=== PATIENT | male | born 1955 | race Caucasian/White ===

== ENCOUNTER 2017-02-23 05:10 | Inpatient (IN) | payer BC ==
[~2017-02-23] VITALS: Ht 177.8 cm; Wt 108.9 kg
--- NOTE | 2017-02-23 05:23 | NUR ---
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 AOX4, afebrile w/ resp even & unlabored, no N/V/D at this time w/ mild discomfort noted. pt in gown, on continuous monitoring. Urine obtained & sent to lab. Dr. Harrell at bedside for further eval.
[2017-02-23] MEDS ORDERED: IV NS 0.9% 1,000 ML BAG IV ONE (05:30)
[2017-02-23] MEDS ORDERED: MORPHINE SULFATE INJ 2 MG/ML DISP.SYRIN IV ONE (05:30)
[2017-02-23] MEDS ORDERED: ONDANSETRON HCL/PF 4 MG/2 ML VIAL IVP ONE (05:30)
[2017-02-23] MEDS ORDERED: ONDANSETRON HCL/PF 4 MG/2 ML VIAL ONE (05:35)
[2017-02-23] MEDS ORDERED: MORPHINE SULFATE INJ 4 MG/ML DISP.SYRIN ONE (05:35)
[2017-02-23] MEDS ORDERED: IV NS 0.9% 1,000 ML ONE (05:36)
[2017-02-23] MEDS ORDERED: IV SET PRIMARY 1 EA INFUS.SET MC ONE ×2 (05:36→08:39)
--- NOTE | 2017-02-23 05:40 | NUR ---
IVHL started, labs drawn & sent. pt medicated as ordered.
[2017-02-23 05:45] LABS: BASOPHILS % (AUTO) 0.3 % (0.0-2.0); EOSINOPHILS # (AUTO) 0.4 /CMM (0.0-0.7); EOSINOPHILS % (AUTO) 3.2 % (0.0-6.0); HEMATOCRIT 49 % (39-51); HEMOGLOBIN 16.6 g/dL (13.5-17.5); LYMPHOCYTES # (AUTO) 1.4 /CMM (0.8-4.8); LYMPHOCYTES % (AUTO) 11.9 % (20.0-44.0); MEAN CORPUSCULAR HEMOGLOBIN 30 PG (26.0-33.0); MEAN CORPUSCULAR HGB CONC 34 g/dl (31.0-36.0); MEAN CORPUSCULAR VOLUME 88 fL (80-96); MONOCYTES # (AUTO) 0.6 /CMM (0.1-1.30); MONOCYTES % (AUTO) 5.2 % (2.0-12.0); NEUTROPHILS # (AUTO) 9.4 /CMM (1.8-8.9); NEUTROPHILS % (AUTO) 79.4 % (43.0-81.0); PLATELET COUNT (AUTO) 196 /CMM (150-450); RED BLOOD CELL COUNT(AUTO) 5.49 MIL/uL (4.5-6.0); WHITE BLOOD COUNT (AUTO) 11.9 K/uL (4.3-11.0)
[2017-02-23 05:49] LABS: APPEARANCE,URINE CLEAR (CLEAR); BILIRUBIN,URINE NEGATIVE (NEGATIVE); BLOOD, URINE 2+ Ery/uL (NEGATIVE); COLOR,URINE YELLOW (YELLOW); KETONES,URINE NEGATIVE (NEGATIVE); LEUKOCYTE ESTERASE ,URINE NEGATIVE (NEGATIVE); NITRITE, URINE NEGATIVE (NEGATIVE); PROTEIN,URINE NEGATIVE (NEGATIVE); UGLUCOSE NEGATIVE (NEGATIVE); UROBILINOGEN,URINE 0.2 EU/dL (0.2)
--- NOTE | 2017-02-23 05:52 | NUR ---
PT TO CT ON [place]. VSS, NAD NOTED.
[2017-02-23 05:56] LABS: WBC,URINE 0-2 /HPF (0-3)
[2017-02-23 05:56] LABS: CALCIUM, SERUM 9.2 mg/dL (8.5-10.1); CARBON DIOXIDE 28 mmol/L (21-32); CHLORIDE 106 mmol/L (98-107); CREATININE 1.1 mg/dL (0.6-1.3); GLUCOSE 133 mg/dL (74-106); POTASSIUM 4.1 mmol/L (3.5-5.1); SODIUM SERUM 140 mmol/L (136-145); UREA NITROGEN, BLOOD 24 mg/dL (7-18)
[2017-02-23 05:57] LABS: BACTERIA,URINE None seen /HPF (None Seen); SQUAMOUS EPITHELIAL CELL,UR 0-2 /HPF (None Seen)
[2017-02-23 05:58] LABS: INR 1.04 (0.87-1.13); PROTHROMBIN TIME 11.2 SECS (9.5-12.7)
[2017-02-23 06:02] LABS: ALANINE AMINOTRANSFERASE 37 U/L (12-78); ALBUMIN 3.8 g/dL (3.4-5.0); ALKALINE PHOSPHATASE 93 U/L (46-116); ASPARTATE AMINOTRANSFERASE 20 U/L (15-37); BILIRUBIN,DIRECT 0.1 mg/dL (0.0-0.2); BILIRUBIN,TOTAL 0.6 mg/dL (0.2-1.0); LIPASE 107 U/L (73-393); TOTAL PROTEIN, SERUM 7.4 g/dL (6.4-8.2)
[2017-02-23 06:04] LABS: TROPONIN I < 0.017 ng/mL (0.00-0.056)
--- NOTE | 2017-02-23 06:05 | NUR ---
pt back fr CT w/ resp even & unlabored, nad noted.
--- NOTE | 2017-02-23 06:13 | NUR ---
pt report continues to have diffuse abd pain, more pain radiating to midupper back, unrelieved w/ pain medication, but refusing anymore pain medications at this time. On continuous monitoring.
--- NOTE | 2017-02-23 06:24 | NUR ---
Dr. Goldberg at bedside for further eval.
--- NOTE | 2017-02-23 06:39 | NUR ---
Dr. Goldberg at bedside for update on pt status.
[2017-02-23] MEDS ORDERED: IV SET PRIMARY PUMP SET 1 EA INFUS.SET MC ONE ×2 (06:54→14:26)
[2017-02-23] MEDS ORDERED: PIPERACILLIN /TAZOBACTAM 3.375 G VIAL IV ONE (06:54)
--- NOTE | 2017-02-23 06:58 | NUR ---
pt ambulatory w/ steady gait to restroom.
[2017-02-23] MEDS ORDERED: PIPERACILLIN /TAZOBACTAM 3.375 G in IV D5W 50 ML IV ONE (07:00)
--- NOTE | 2017-02-23 07:01 | NUR ---
CALLED AND LEFT MESSAGE FOR ON-CALL SURGEON
--- NOTE | 2017-02-23 07:05 | NUR ---
pt medicated as ordered w/ IV antibiotics, on continuous monitoring, awaiting US.
--- NOTE | 2017-02-23 07:10 | NUR ---
Report given to GIOVANNA Sotelo for ANNALISE.
--- NOTE | 2017-02-23 07:31 | NUR ---
REPORT GIVEN TO JULIO HEREDIA FOR CONTINUITY OF CARE
[2017-02-23] MEDS ORDERED: ASPI81TA2 PO (08:05)
[2017-02-23] MEDS ORDERED: FLUT16SP16 NS (08:05)
[2017-02-23] MEDS ORDERED: AMLO5TAB2 PO (08:05)
[2017-02-23] MEDS ORDERED: CITA20TA11 PO (08:05)
[2017-02-23] MEDS ORDERED: SIMV40TA5 PO (08:05)
[2017-02-23] MEDS ORDERED: POTA10TA15 PO (08:05)
[2017-02-23] MEDS ORDERED: [UNRECOGNIZED DRUG - CODE] PO (08:05)
--- NOTE | 2017-02-23 08:05 | NUR ---
PER DR HADLEY SURGERY WILL BE AT 1100. CONSENTS PREPARED, PER PT DOES NOT WANT TO SIGN UNTIL HE SPEAKS WITH SURGEON, PER WILL SPEAK WITH PT PRIOR TO SX
[2017-02-23] MEDS ORDERED: BRIM5DRO11 LEFTEYE (08:16)
[2017-02-23] MEDS ORDERED: LATA2.5D7 LEFTEYE (08:16)
[2017-02-23] MEDS ORDERED: DORZ10DR11 EACHEYE (08:16)
[2017-02-23] MEDS ORDERED: LOTE5DRO3 LEFTEYE (08:16)
[2017-02-23] MEDS ORDERED: IV NS 0.9% 500 ML IV ONE (08:39)
[2017-02-23] MEDS ORDERED: IV NS 0.9% 500 ML BAG IV ONE (09:00)
[2017-02-23] MEDS ORDERED: LIDOCAINE HCL/PF 1% 30 ML SDV ONE (09:10)
[2017-02-23] MEDS ORDERED: BUPIVACAINE MPF W/EPI 0.25% 30 ML VIAL ONE (09:10)
--- NOTE | 2017-02-23 09:30 | NUR ---
MS RN NOTES PATIENT RECEIVED FROM ER. NO SOB OR DISTRESS NOTED AT THIS TIME. PATIENT DENIES PAIN. PATIENT ORIENTED TO ROOM AND CALL LIGHT. BELONGINGS LIST CHECKED AND ACCOUNTED FOR.
[2017-02-23 09:53] VITALS: BP 139/91
[2017-02-23] MEDS ORDERED: FENTANYL PF 100MCG/2ML AMPUL ONE (11:11)
[2017-02-23] MEDS ORDERED: MIDAZOLAM HCL 2 MG/2ML VIAL ONE (11:11)
[2017-02-23] MEDS ORDERED: ROCURONIUM BROMIDE 50 MG/5 ML ONE ×2 (11:12)
[2017-02-23] MEDS ORDERED: ONDANSETRON HCL/PF 4 MG/2 ML VIAL IVP PRN (11:30)
[2017-02-23] MEDS ORDERED: Z GUARD REMEDY 2 OZ OINT TP PRN (11:30)
[2017-02-23] MEDS ORDERED: ZOLPIDEM TARTRATE 5 MG TABLET PO PRN ×2 (11:30→15:00)
[2017-02-23] MEDS ORDERED: MORPHINE SULFATE INJ 2 MG/ML DISP.SYRIN IV PRN ×2 (11:30→15:00)
[2017-02-23] MEDS ORDERED: ALPRAZOLAM 1 MG TABLET PO PRN (11:30)
[2017-02-23] MEDS ORDERED: ACETAMINOPHEN 325 MG TABLET PO PRN (11:30)
--- NOTE | 2017-02-23 14:24 | NUR ---
RN NOTES PATIENT RECEIVED FROM OR IN STABLE CONDITION. NO SOB OR DISTRESS, PATIENT DENIES PAIN. VITALS CHECKED AND RECORDED. WILL MONITOR.
[2017-02-23] MEDS ORDERED: SECONDARY IV SET 1 EA INFUS.SET MC ONE ×2 (14:26→20:23)
[2017-02-23] MEDS: PIPERACILLIN /TAZOBACTAM 3.375 G in IV D5W 50 ML IV SCH ×2 (14:34→17:23)
[2017-02-23] MEDS: IV NS 0.9% 1,000 ML IV PRN (14:35)
[2017-02-23] MEDS ORDERED: HYDROCODONE/APAP 5/325MG 1 EACH TABLET PO PRN (15:00)
[2017-02-23] MEDS ORDERED: SENNOSIDES 8.6 MG TABLET PO PRN (15:00)
[2017-02-23 16:00] VITALS: BP 101/63
[2017-02-23] MEDS: TIMOLOL MAL/DORZOLAM HCL OPHTH 10 ML BOTTLE EACHEYE SCH (17:23)
[2017-02-23] MEDS: BRIMONIDINE TARTRATE OPHT SOLN 5 ML BOTTLE LEFTEYE SCH (17:23)
--- NOTE | 2017-02-23 19:09 | NUR ---
MS RN CLOSING NOTES NO SIGNIFICANT CHANGES IN PATIENT CONDITION THROUGHOUT THE SHIFT. NO SOB OR DISTRESS NOTED, PATIENT DENIES PAIN AT THIS TIME. BED IN A LOW POSITION, CALL LIGHT WITHIN PATIENT REACH. WILL ENDORSE FOR ANNALISE.
--- NOTE | 2017-02-23 19:40 | NUR ---
MSRN FULLY AWAKE, RESTING QUIETLY. NO NEEDS FOR NOW, DENIES ANY TYPE OF PAIN. WILL CALL IF NEEDED. PRESENT IVF INFUSING WELL.
[2017-02-23 20:00] VITALS: BP 110/62
[2017-02-23] MEDS: ANCEF 1 GM/50 ML D5W IV SCH ×2 (20:32)
[2017-02-23] MEDS ORDERED: ASPIRIN 81 MG TAB.CHEW PO SCH (22:00)
--- NOTE | 2017-02-24 00:15 | NUR ---
MSRN OFFERED PAIN MEDICAINE, STATED PAIN SCALE WAS 2 TO 3 OUT OF 10. WILL CALL IF NEEDED.
[2017-02-24] MEDS: PIPERACILLIN /TAZOBACTAM 3.375 G in IV D5W 50 ML IV SCH ×3 (00:36→12:31)
[2017-02-24] MEDS: ANCEF 1 GM/50 ML D5W IV SCH ×2 (04:49)
[2017-02-24] MEDS: IV NS 0.9% 1,000 ML IV PRN (05:22)
--- NOTE | 2017-02-24 06:30 | NUR ---
MSRN ASSISTED TO RESTROOM, GAIT STEADY. PASSED LITTLE GAS PT STATED. REQUESTED MORPHINE , 2MG IVP ADMNISTERED. BEDREST INSTRUCTED.
[2017-02-24 06:31] LABS: BASOPHILS % (AUTO) 0.1 % (0.0-2.0); EOSINOPHILS % (AUTO) 0.3 % (0.0-6.0); HEMATOCRIT 43 % (39-51); HEMOGLOBIN 14.6 g/dL (13.5-17.5); LYMPHOCYTES # (AUTO) 0.9 /CMM (0.8-4.8); LYMPHOCYTES % (AUTO) 6.6 % (20.0-44.0); MEAN CORPUSCULAR HEMOGLOBIN 31 PG (26.0-33.0); MEAN CORPUSCULAR HGB CONC 34 g/dl (31.0-36.0); MEAN CORPUSCULAR VOLUME 91 fL (80-96); MONOCYTES # (AUTO) 0.9 /CMM (0.1-1.30); MONOCYTES % (AUTO) 6.7 % (2.0-12.0); NEUTROPHILS # (AUTO) 11.4 /CMM (1.8-8.9); NEUTROPHILS % (AUTO) 86.3 % (43.0-81.0); PLATELET COUNT (AUTO) 175 /CMM (150-450); RDW COEFFICIENT OF VARIATION 14.3 (11.5-15.0); RED BLOOD CELL COUNT(AUTO) 4.72 MIL/uL (4.5-6.0); WHITE BLOOD COUNT (AUTO) 13.2 K/uL (4.3-11.0)
[2017-02-24 06:50] LABS: ALBUMIN 2.9 g/dL (3.4-5.0); BILIRUBIN,TOTAL 0.8 mg/dL (0.2-1.0); CALCIUM, SERUM 8.2 mg/dL (8.5-10.1); CREATININE 1.2 mg/dL (0.6-1.3); MAGNESIUM 1.9 mg/dL (1.8-2.4); PHOSPHORUS 3.1 mg/dL (2.5-4.9); POTASSIUM 4.3 mmol/L (3.5-5.1); TOTAL PROTEIN, SERUM 6.2 g/dL (6.4-8.2)
[2017-02-24 07:15] LABS: THYROID STIMULATING HORMONE 0.255 uIU/mL (0.358-3.74)
--- NOTE | 2017-02-24 07:20 | NUR ---
RN NOTES PATIENT AWAKE, ALERT AND VERBALLY RESPONSIVE ABLE TO MAKE NEEDS KNOWN. RESPIRATIONS EVEN AND UNLABORED, DENIES ANY PAIN OR DISCOMFORT. PATIENT KEPT CLEAN DRY AND COMFORTABLE, IV SITE PATENT AND INTACT NO REDNESS OR INFILTRATION NOTED. WILL CONTINUE TO MONITOR AND CONTINUE CURRENT TREATMENT ORDERED. CALL LIGHT WITHIN EASY REACH, WILL CONTINUE TO MONITOR
[2017-02-24] MEDS ORDERED: PANTOPRAZOLE 40 MG TABLET.DR PO SCH (07:30)
[2017-02-24 08:00] VITALS: BP 107/69
--- NOTE | 2017-02-24 08:30 | NUR ---
RN NOTES PATIENT REQUESTING TO GO HOME, WANTS TO TALK TO DOCTOR OR WILL GO AGAINST MEDICAL ADVICE, PAGED DR. KIM AND DR. URBAN WILL AWAIT CALL BACK
[2017-02-24 09:00] VITALS: BP 107/69
[2017-02-24] MEDS ORDERED: SIMVASTATIN 20 MG TABLET PO SCH (09:00)
[2017-02-24] MEDS ORDERED: FLUTICASONE PROPIONATE 16 GM BOTTLE NS SCH (09:00)
[2017-02-24] MEDS ORDERED: CITALOPRAM HYDROBROMIDE 20 MG TABLET PO SCH (09:00)
[2017-02-24] MEDS ORDERED: POTASSIUM CHLORIDE 10 MEQ TABLET.SA PO SCH (09:00)
[2017-02-24] MEDS ORDERED: AMLODIPINE BESYLATE 5 MG TABLET PO SCH (09:00)
[2017-02-24] MEDS ORDERED: SIMVASTATIN 40 MG TABLET PO SCH (09:00)
[2017-02-24] MEDS ORDERED: ALPRAZOLAM PO SCH (10:00)
[2017-02-24] MEDS: BRIMONIDINE TARTRATE OPHT SOLN 5 ML BOTTLE LEFTEYE SCH (10:28)
[2017-02-24] MEDS: TIMOLOL MAL/DORZOLAM HCL OPHTH 10 ML BOTTLE EACHEYE SCH (10:29)
[2017-02-24] MEDS ORDERED: CEPH-570 PO (11:56)
[2017-02-24] MEDS ORDERED: HYDR-548 PO (11:56)
--- NOTE | 2017-02-24 14:40 | NUR ---
RN NOTES PATIENT AWAKE, ALERT AND VERBALLY RESPONSIVE ABLE TO MAKE NEEDS KNOWN. RESPIRATIONS EVEN AND UNLABORED, DENIES ANY PAIN OR DISCOMFORT. PATIENT KEPT CLEAN DRY AND COMFORTABLE, IV SITE REMOVED WITH NO ASE NOTED. PT WITH ORDERS FOR DISCHARGE, ALL APPROPRIATE PAPERWORK SIGNED, ALL DISCHARGE INSTRUCTIONS REVIEWED AND EXPLAINED WITH VERBAL UNDERSTANDING NOTED. ALL BELONGINGS ACCOUNTED FOR, SPOKE TO FRANSISCO FROM PREFERRED PHARMACY RECEIVED ELECTRONIC PRESCRIPTION PT AWARE, REFUSED PICTURES OF S/P LAP REED SITES NURSING EDUCATION REINFORCED, PT MEDS RETURNED [facility] ER 28 TABS. ASSISTED TO LOBBY BY TRUCK RENTAL SERVICE ATTENDANT AND RN DISCHARGED IN STABLE CONDITION
[2017-02-24] MEDS ORDERED: LATANOPROST EYE DROP 0.005% 2.5 ML BOTTLE LEFTEYE SCH (22:00)
== END 2017-02-24 14:40 | disposition home or self-care (01) | DRG 419 ==
LOC: ER 05:12 → MEDSG2 08:53
PROVIDERS: ADMIT Nurse Practitioner Acute Care; ATTEND Nurse Practitioner Acute Care
PROC: 0FT44ZZ Resection of Gallbladder, Percutaneous Endoscopic Approach (ICD-10-PCS; 2017-02-23)
PROC: 0WQF4ZZ Repair Abdominal Wall, Percutaneous Endoscopic Approach (ICD-10-PCS; principal; 2017-02-23 12:01)
DX: K81.0 Acute cholecystitis (principal); I10 Essential (primary) hypertension; E78.5 Hyperlipidemia, unspecified; E66.9 Obesity, unspecified; K42.9 Umbilical hernia without obstruction or gangrene; Z68.34 Body mass index [BMI] 34.0-34.9, adult
CPT/HCPCS: 36415; 76705-TC; 80048-TC; 80053-TC; 80061-TC; 80076-TC; 81000-TC; 83690-TC; 83735-TC; 84100-TC; 84443-TC; 84484-TC; 85025-TC; 85730-TC; 86850-TC; 87081-TC; 88304-TC; 88305-TC; A4606; J0690; J1100; J1885; J2250; J2270; J2405; J2543; J2704; J2710; J3010; J3490; J7030; J7040; J7060; Z7610